=== PATIENT | female | born 1990 | race African-American/Black ===

== ENCOUNTER 2023-01-11 10:44 | Emergency (ER) | payer OTHER ==
[~2023-01-11] VITALS: Ht 170.2 cm; Wt 57.6 kg
[~2023-01-11 10:44] MED LIST: PEPCID20 MG; PEPCID20 MG PO; PHENERGAN25 MG RC; ZOFRAN4 MG; ZOFRAN4 MG PO
== END 2023-01-11 12:16 | disposition home or self-care (01) ==
LOC: ER 10:44
DX: J06.9 Acute upper respiratory infection, unspecified (principal)